=== PATIENT | female | born 1970 | race Caucasian/White ===

== ENCOUNTER 2016-09-02 07:30 | Outpatient (RCR) | payer OTHER | END 2016-10-22 15:43 | disposition home or self-care (01) | LOC: PT 07:30 | PROVIDERS: ATTEND Family Medicine | DX: M48.02 Spinal stenosis, cervical region (principal); M50.33 Other cervical disc degeneration, cervicothoracic region; G56.01 Carpal tunnel syndrome, right upper limb ==

== ENCOUNTER 2016-12-21 12:00 | Emergency (ER) | payer OTHER ==
[~2016-12-21] VITALS: Ht 162.6 cm; Wt 81.0 kg
[~2016-12-21 12:00] MED LIST: CIPR250T3 PO
--- OUTSIDE RECORDS SUMMARY | 2016-12-21 12:05 | XMS REPORT | Summary of Care ---
Author Author Agustín Espinosa M.D. Organization Unknown Address [address], [place] [id number] Phone Unavailable Care Team Providers Care Pillowcase Sewer Name Role Phone Agustín Espinosa M.D. Unavailable Unavailable Agustín Espinosa PP Unavailable Unavailable Unavailable Functional Status Functional Status Health Issues Name Dates Details Functional status health issues are not documented Status: Cognitive Status Health Issues Name Dates Details Cognitive status health issues are not documented Status: Problems Name Dates Details Benign paroxysmal positional vertigo (386.11, H81.10) Status: Active Dermatofibroma (216.9, D23.9) Status: Active Depression (311, F32.9) Status: Active Hypertension (401.9, I10) Status: Active Obesity (278.00, E66.9) Status: Active Dysuria (788.1, R30.0) Status: Active Acute bronchitis (466.0, J20.9) Status: Active Fever (780.60, R50.9) Status: Active Sinusitis (473.9, J32.9) Status: Active Medications Name Dates Details Lisinopril 10 MG Oral Tablet TAKE ONE TABLET BY MOUTH ONCE DAILY Quantity: 30 Refills: 11 Agustín Espinosa M.D. Started 20-Jun-2012 ActiveDULoxetine HCl - 60 MG Oral Capsule Delayed Release Particles 1 po daily Quantity: 90 Refills: 3 Agustín Espinosa M.D. Started ActiveLevofloxacin 500 MG Oral Tablet TAKE 1 TABLET DAILY DIRECTED. Quantity: 10 Refills: 0 Agustín Espinosa M.D. 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 History of Pain, upper back (724.5, M54.6) Status: Resolved History of sinusitis (V12.69, Z87.09) Status: Resolved Procedures Procedure Dates Details History of Tonsillectomy With Adenoidectomy History of Hysterectomy History of Section History of Appendectomy History of Nephrectomy C REACTIVE PROTEIN, CRP 2030 Ordered:08-Nov-2014 CBC w/ Auto Diff 7150 Ordered:08-Nov-2014 Comprehensive Metabolic Panel 1212 Ordered:08-Nov-2014 XRay CHEST-PA & LAT Ordered:08-Nov-2014 XRay CHEST-PA & LAT Ordered:08-Nov-2014 Immunization Name Dates Details Fluzone Intramuscular Injectable Administered on:26-Jul-2012 Tdap (Adacel) Administered on: Family History Unknown Family Member Name Dates Details Family history of Malignant Carcinoma Of The Oral Cavity (V16.0) Comments: Family History Status: Active Mother Name Dates Details Family history of Hypercholesterolemia Status: Active Father Name Dates Details Family history of Coronary Arteriosclerosis (V17.49) Status: Active Family history of Diabetes Mellitus (V18.0) Status: Active Social History Name Dates Details Smoking StatusNever smoker Vital Signs Date Test Result Details 08-Nov-2014 11:28 BP Systolic 144 mm[Hg] Status: BP Diastolic 100 mm[Hg] Status: Heart Rate 84 /min Status: Respiration Rate 16 /min Status: Temperature 98.1 f Status: Weight 162 lb Status: Body Mass Index Calculated 27.81 kg/m2 Status: Body Surface Area Calculated 1.79 m2 Status: 31-Oct-2014 09:31 BP Systolic 138 mm[Hg] Status: BP Diastolic 88 mm[Hg] Status: Heart Rate 72 /min Status: Respiration Rate 16 /min Status: Temperature 97.4 f Status: Weight 164 lb Status: Body Mass Index Calculated 28.15 kg/m2 Status: Body Surface Area Calculated 1.8 m2 Status: Results Date Description Value Details 08-Nov-2014 11:59 INFLUENZA A/B ANTIGEN 5320 Comments: *Negative results do not exclude Influenza viral infection and could be confirmed with viral culture or Influenza molecular assays. Physician order would be required.* Testing performed by [facility], [address] [place] [address], [place] [address] *INFLUENZA A/B ANTIGEN Negative (Better) Range: Negative Plan of Care Planned Observations Name Dates Details Planned Goals not documented Goal Instructions Instructions not documented Encounters Appointment; Agustín Espinosa Diagnosis: Problem not documented On 08-Nov-2014 10:45 Appointment; Agustín Espinosa Encounter Diagnosis: Problem not documented On 31-Oct-2014 09:30 Appointment; Agustín Espinosa Encounter Diagnosis: Problem not documented On 31-Jul-2014 16:15 Appointment; Agustín Espinosa Encounter Diagnosis: Problem not documented On 14-Jun-2014 11:00 Appointment; Agustín Espinosa Encounter Diagnosis: Problem not documented On 09:00 Appointment; Agustín Espinosa Encounter Diagnosis: Problem not documented On 11:00 Appointment; Agustín Espinosa Encounter Diagnosis: Problem not documented On 09:00 Appointment; Agustín Espinosa Encounter Diagnosis: Problem not documented On 13-Nov-2013 13:45 Appointment; Agustín Espinosa Encounter Diagnosis: Problem not documented On 17-Jul-2013 14:30 Appointment; Agustín Espinosa Encounter Diagnosis: Problem not documented On 10:00
[2016-12-21] MEDS ORDERED: DULO60CA58 PO (12:22)
[2016-12-21] MEDS ORDERED: LSNP20T PO (12:22)
[2016-12-21 12:47] LABS: BASOPHILS % (AUTO) 0 % (0-2); EOSINOPHILS # (AUTO) 0.1 10^3uL; EOSINOPHILS % (AUTO) 1 % (0-4); LYMPHOCYTES # (AUTO) 1.9 X10^3; MEAN CORPUSCULAR HEMOGLOBIN 29.4 PG (26.0-34.0); MEAN CORPUSCULAR HGB CONC 33.3 g/dL (31.0-37.0); MEAN CORPUSCULAR VOLUME 88 FL (80-100); MEAN PLATELET VOLUME 11.1 FL (6.0-9.5); MONOCYTES # (AUTO) 0.4 X10^3; MONOCYTES % (AUTO) 7 % (3-11); NEUTROPHILS # (AUTO) 3.4 X10^3; NEUTROPHILS % (AUTO) 59 % (51-67); PLATELET COUNT 224 10^3uL (150-450); WHITE BLOOD COUNT 5.86 10^3uL (4.0-11.0)
--- NOTE | 2016-12-21 12:50 | NUR ---
states no iv needed at this time
[2016-12-21 13:02] LABS: ALBUMIN 4.6 g/dL (3.4-5.0); ALKALINE PHOSPHATASE 93 U/L (38-126); ANION GAP 14.5 MEQ/L (3-15); BUN/CREATININE RATIO 16 (10-20); CREATINE KINASE 71 U/L (30-135); TOTAL PROTEIN 7.9 g/dL (6.4-8.5)
--- NOTE | 2016-12-21 13:08 | NUR ---
Awaiting labs, no complaints.
--- NOTE | 2016-12-21 13:10 | Diagnostic Imaging Report ---
INDICATION: Chest pain. FINDINGS: Portable chest shows lungs to be well-aerated and clear. The heart is not enlarged. There is no evidence of pulmonary edema. No hilar adenopathy. No pneumothorax or pleural effusion. IMPRESSION: Normal portable chest. Dictated by: Dictated on workstation # [id number]
[2016-12-21 13:30] VITALS: BP 130/72
== END 2016-12-21 13:32 | disposition home or self-care (01) ==
LOC: ED 12:01
DX: M94.0 Chondrocostal junction syndrome [Tietze] (principal)
CPT/HCPCS: 36415; 71010; 80053; 82550; 82553; 84484; 85025; 93005; 93010; 99283; 99284